=== PATIENT | female | born 2000 | race Caucasian/White ===

== ENCOUNTER 2023-04-01 07:13 | Emergency (ER) | payer OTHER, SELFPAY ==
[2023-04-01 07:19] VITALS: BP 135/75; PULSE 85; RESP 16; TEMP 36.3; O2SAT 100; BMI 43.4
--- NOTE | 2023-04-01 07:39 | ED_ITS ---
HPI - Female Genitourinary General Chief complaint: Urogenital-Female Stated complaint: Pain when urinating Time Seen by Provider: 04/01/23 07:38 Source: patient Mode of arrival: ambulatory Limitations: no limitations History of Present Illness HPI Narrative: 22-year-old female who presents emergency department for evaluation burning sensation with urination, vaginal itchiness and a white cottage cheese discharge . The patient has not been on antibiotics recently and she does not have a history of diabetes. She is sexually active and last had sex on 03/22/2023. The patient states she did use a condom. She denied urinary frequency or urgency. She denied abdominal pain, flank pain, fever, chills or fatigue. Related Data Previous Rx's Medication Instructions Recorded cephalexin 500 mg capsule 500 mg PO QID 5 days #20 caps 04/01/23 fluconazole 150 mg tablet 150 mg PO QWEEK 2 weeks #2 tabs 04/01/23 (Diflucan) miconazole nitrate 2 % vaginal 1 appful vaginal BEDTIME 7 days 04/01/23 cream (Monistat 7) #45 grams Allergies Allergy/AdvReac Type Severity Reaction Status Date / Time No Known Allergies Allergy Verified 04/01/23 07:22 Review of Systems Review of Systems: Yes all other systems are reviewed and are negative [facility] Past Medical History [facility] Narrative: Past medical history: Asthma. Social history: The patient vapes nicotine. She does drink alcohol 1 to 2 times a week. She denies drug use. Social History Social History Alcohol intake: current Alcohol intake frequency: a few times a week Smoked in Last 30 Days: Yes Use of substances other than those prescribed or required for medical reasons: No Advance Directives: No Advance Directives Information Provided: No Patient : No Physical Exam Vital Signs: Vital Signs: Last Vital Signs Temp 97.4 F 04/01/23 07:19 Pulse 85 04/01/23 07:19 Resp 16 04/01/23 07:19 BP 135/75 04/01/23 07:19 Pulse Ox 100 04/01/23 07:19 O2 Del Method Room Air 04/01/23 07:19 BMI result Body Mass Index 43.4 Const: General: cooperative and no acute distress Orientation/conscio usness: oriented to person and oriented to place Limitations: no limitations HEENT: Head: Yes normal to inspection, Yes normocephalic and Yes atraumatic Ears: external ears normal General nose exam: Normal external nose present Face and sinus: Yes normal facial exam Mouth: Normal oral and palatal mucosa present Throat: Yes posterior oropharynx normal Eyes: General: appearance normal, both eyes and all related structures Neck: Neck: Yes normal visual inspection, Yes no lymphadenopathy, Yes trachea midline and Yes supple Chest: Chest palpation & inspection: normal inspection of the chest and normal palpation of entire chest wall Resp: Effort & Inspection: normal respiratory effort and able to speak in complete sentences Auscultation: clear to auscultation bilaterally Cardio: Rate: regular rate Rhythm: regular rhythm Heart sounds: S1 normal heart sound present, S2 normal heart sound present and no murmurs GI: Inspection: Yes normal to inspection Palpation (GI): Soft to palpation, nontender and no guarding Auscultation: normal bowel sounds : General: Yes no CVA tenderness Back/Spine/Pelvis: Back: no CVA tenderness Skin: General skin exam: no rashes or lesions noted Neuro: General: oriented to person and oriented to place Cognition (Neuro): normal cognition Extrem: General: Yes normal to inspection Psych: Appearance: grossly normal Speech and movement: Normal speech and movement present Affect: normal affect Attitude: cooperative Medical Decision Making Medical Decision Making MDM Narrative: 22-year-old female who presents emergency department for evaluation of 2 days of burning sensation with urination, vaginal itchiness and a cottage cheese weight discharge which is unusual for her. She is sexually active and last had intercourse on 03/22/2021. She had no other systemic symptoms. Vital signs were normal. Patient's urinalysis was positive for leukocyte esterase, negative for nitrates. Microscopic revealed 11-20 WBCs 3-5 squamous cells trace bacteria. test was negative. Patient's symptoms are consistent with urine tract infection and yeast infection. Patient urinary tract infection will be treated with Keflex 500 mg 3 times a day for 5 days and her yeast infection will be treated with Diflucan 150 mg 1 pill now and 1 pill in 1 week and Monistat 7 -1 applicator at night for 7 days. Patient was given a work note . 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 Patient was tested for gonorrhea and chlamydia and I did tell her that she can check this on the patient portal, she should also follow up with a steamship agent to check these results. Differential Diagnosis Differential diagnosis includes was not limited to urinary tract infection, vaginal candidiasis, PID, STD, Lab Data [facility] Lab Attestation statement: I reviewed the patient's lab results. See [facility] Labs: Lab Results 04/01/23 04/01/23 Range/Units 07:33 07:33 Urine Color Yellow Urine Appearance Clear Urine pH 7.0 (5.0-9.0) Ur Specific [place] 1.020 (1.005-1.025) Urine Protein Negative (Neg-Trace) mg/dL Urine Glucose (UA) Negative (Negative) mg/dL Urine Ketones Negative (Negative) mg/dL Urine Blood Negative (Negative) Urine Nitrite Negative (Negative) Ur Leukocyte Esterase Moderate (2+) H (Negative) Urine RBC 0-2 (0-2) /HPF Urine WBC 11-20 H (0-5) /HPF Ur Squamous Epith Cells 3-5 (0-2) /HPF Urine Bacteria Trace (None Seen) Hyaline Casts 0-2 (0-2) /LPF Urine Test NEGATIVE (NEGATIVE) Discharge Plan Discharge Clinical Impression: Urinary tract infection, Candidiasis of vagina Patient Disposition: Home, Self-Care Instructions: Urinary Tract Infection in Women (ED), Yeast Infection (ED) Additional Instructions: Your urine sample did reveal white blood cells and bacteria in your urine. Your description of your discharge is consistent with a yeast infection. I am treating you for both a yeast infection and a urine infection. Take the antibiotic Keflex 500 mg pills 1 pill 3 times a day for 5 days-this will treat a urine infection. Take Diflucan 150 mg, 1 pill now repeat this in 1 week. This will treat a yeast infection. I am also giving you a prescription for Monistat 7, use 1 applicator in your vagina daily for 7 days. Rub a little bit of the medication on the outside of your vagina to help with the itchiness prior to inserting the rest of the medicine on the vagina. Your urine is also being tested for gonorrhea and chlamydia. You can check these results on the patient portal, if they are positive then you need to go to an STD Clinic or come back to the emergency department to get treated. Your sexual partner will also need to be treated if any of these tests are positive. Follow-up with our steamship agent in 7-10 days. Please return to the emergency department if your symptoms get worse or if you develop any symptoms that are concerning to you. Please see the work note Prescriptions: New cephalexin 500 mg capsule 500 mg PO QID 5 Days Qty: 20 0RF miconazole nitrate [Monistat 7] 2 % cream 1 appful vaginal BEDTIME 7 Days Qty: 45 0RF fluconazole [Diflucan] 150 mg tablet 150 mg PO QWEEK 14 Days Qty: 2 0RF Referrals: Wily Stout MD [Physician] - 10 days Stand Alone Forms: Work/School Release
[2023-04-01 07:53] LABS: Appearance Urine Clear; Color Urine Yellow; Glucose Urine UA Negative (Negative); Leukocyte Esterase Urine Moderate (2+) (Negative); Nitrite Urine Negative (Negative); UMIC TRIGGER UACC YES; Urine Blood Negative (Negative); Urine Ketones Negative (Negative); Urine Protein Negative (Neg-Trace)
[2023-04-01 08:00] LABS: Bacteria Urine Trace (None Seen); Hyaline Casts Urine 0-2 /LPF (0-2); RBC Urine 0-2 /HPF (0-2); UACC Culture Trigger YES
[2023-04-01 08:11] LABS: UPreg QC Valid YES; Urine Pregnancy NEGATIVE (NEGATIVE)
[2023-04-01 09:15] VITALS: BP 133/80; PULSE 102; TEMP 36.8; O2SAT 100
[2023-04-01 09:59] LABS: CT PCR NOT DETECTED (Not Detect.); NG PCR NOT DETECTED (Not Detect.)
== END 2023-04-01 09:31 | disposition home or self-care (01) ==
PROVIDERS: Emergency Provider Emergency Medicine Emergency Medical Services
DX: N39.0 Urinary tract infection, site not specified (principal); B37.31 Acute candidiasis of vulva and vagina; R30.9 Painful micturition, unspecified; Z20.822 Contact with and (suspected) exposure to COVID-19
CPT/HCPCS: 0353U; 81001; 81025; 87086; 99283; 99284

== ENCOUNTER 2023-04-16 13:36 | Outpatient (REF) | payer OTHER, SELFPAY ==
[2023-04-17 13:40] LABS: BV Int Neg Control Negative (Negative); BV Int Pos Control Positive (Positive)
== END 2023-04-16 13:37 | disposition home or self-care (01) ==
LOC: HO.LNP 13:36
PROVIDERS: Visit Provider Obstetrics & Gynecology
DX: Z01.419 Encounter for gynecological examination (general) (routine) without abnormal findings (principal); Z20.2 Contact with and (suspected) exposure to infections with a predominantly sexual mode of transmission; Z87.440 Personal history of urinary (tract) infections
CPT/HCPCS: 87480; 87510; 87660; 88142

== ENCOUNTER 2023-04-16 14:14 | Outpatient (REF) | payer OTHER, SELFPAY ==
[2023-04-17 03:34] LABS: CT PCR NOT DETECTED (Not Detect.); NG PCR NOT DETECTED (Not Detect.)
[2023-04-18 07:51] LABS: Syphilis Screen Nonreactive (Nonreactive)
[2023-04-18 08:05] LABS: HBsAGNum1 0.38 S/CO (0.00-0.99); HIV AB/AG Nonreactive (Nonreactive); HIV Num 1 0.08 S/CO (0.00-0.99); Hepatitis B Surface Antigen Negative (Negative); ~HepC Num1 0.09 S/CO (0.00-0.79); ~Hepatitis C Antibody Nonreactive (Nonreactive)
== END 2023-04-16 14:15 | disposition home or self-care (01) ==
LOC: HO.LAB 14:14
PROVIDERS: Visit Provider Obstetrics & Gynecology
DX: Z01.419 Encounter for gynecological examination (general) (routine) without abnormal findings (principal); Z20.2 Contact with and (suspected) exposure to infections with a predominantly sexual mode of transmission
CPT/HCPCS: 0353U; 86780; 86803; 87340; 87389

== ENCOUNTER 2023-10-04 13:35 | Emergency (ER) | payer OTHER, SELFPAY ==
--- NOTE | ~2023-10-04 | XR_ITS ---
EXAMINATION: XR CHEST CLINICAL INFORMATION: Cough. COMPARISON: None available. TECHNIQUE: 2 views of the chest were obtained. FINDINGS: No significant abnormality is noted involving the heart, lungs, mediastinum, bony thorax or soft tissues. XR/XR chest 2V IMPRESSION: Unremarkable chest exam.
[2023-10-04 14:21] VITALS: BP 141/78; PULSE 120; RESP 16; TEMP 37; O2SAT 98; BMI 44.9
--- NOTE | 2023-10-04 14:22 | ED_ITS ---
HPI - General Adult General Chief complaint: Upper Respiratory Symptoms Stated complaint: dry cough Time Seen by Provider: 10/04/23 15:25 Source: patient Mode of arrival: ambulatory Limitations: no limitations History of Present Illness HPI narrative: 23 year old female with pmhx significant for asthma presents to the ED today with complaint of dry cough x2 days. Reports sick contacts. States her boyfriend at home has pneumonia and is afraid that she has it now. Has not been taking anything for symptoms at home. Denies fever, chills, SOB, wheezing, chest pain, sore throat, N/V, abdominal pain. States she is 4 days late for her period and is concerned for . Not on OCP. Denies recent travel or long car rides. Related Data Allergies Allergy/AdvReac Type Severity Reaction Status Date / Time No Known Allergies Allergy Verified 10/04/23 14:23 Review of Systems Review of Systems: Constitutional: No fever, chills, fatigue, night sweats, weight changes ENT/Mouth: No ear pain, hearing loss, nasal congestion, sinus pain, rhinorrhea, sore throat Eyes: No eye pain, swelling, redness, vision changes, discharge Cardio: No chest pain, palpitations, GUSMAN, orthopnea, peripheral edema Pulm: No SOB, +cough, No sputum, wheezing, dyspnea, hemoptysis GI: No nausea, vomiting, hematemesis, abdominal pain, diarrhea, constipation, hematochezia, melena : No irregular bleeding, dysuria, frequency, urgency, hesitancy, hematuria, flank pain, urinary flow changes, urinary incontinence or retention MSK: No back pain, neck pain, joint pain, myalgias Skin: No lesions, rashes Neuro: No weakness, numbness, paresthesias, LOC, dizziness, headache All other systems reviewed and are negative. [facility] Past Medical History Attestation statement: The following information was validated with the patient. Source: old records reviewed and nursing notes reviewed Family History Family History Paternal Grandmother Breast cancer Social History Alcohol intake: current Alcohol intake frequency: a few times a week Substance Use Type: Marijuana Advance Directives: No Advance Directives Information Provided: No Physical Exam ED Vital Signs: Vital Signs - 24 hr 10/04/23 14:21 Temperature 98.6 F Pulse Rate 120 H Respiratory Rate 16 Blood Pressure 141/78 H Pulse Oximetry 98 Oxygen Delivery Method Room Air BMI result Body Mass Index 44.9 Afebrile Const General: cooperative, healthy appearing, comfortable, no acute distress, alert and awake Orientation/consciousness: patient oriented x3 Limitations: no limitations HENMT Other: + posterior oropharynx without erythema or edema. No tonsillar exudates. Uvula midline. Controlling secretions and speaking complete sentences. Ears: hearing grossly normal bilaterally, external ears normal, TM's normal bilaterally, EAC's normal, mastoids normal and no periauricular adenopathy Face and sinus: Yes sinuses nontender Mouth: Normal oral and palatal mucosa present and moist mucous membranes Eyes General: appearance normal, both eyes and all related structures Periorbital: periorbital findings normal Conjunctivae: conjunctivae normal Sclerae: sclerae normal Pupils: Equal, round and reactive pupils present Neck Neck: Yes normal visual inspection and Yes no lymphadenopathy Resp Effort & Inspection: normal respiratory effort and able to speak in complete sentences Auscultation: clear to auscultation bilaterally and no wheezes Cardio Rate: tachycardic Rhythm: regular rhythm Peripheral pulses: radial pulses present GI Inspection: Yes normal to inspection Palpation (GI): Soft to palpation, nontender and no guarding Skin General skin exam: no rashes or lesions noted Neuro General: patient oriented x3, gait normal and moves all extremities Cranial nerves: Yes Equal, round and reactive pupils present Extrem General: Yes normal to inspection and Yes full ROM Course Course Course Narrative: RME:?23 yo female w/ hx of asthma presents today for eval of dry cough x2 days. Boyfriend at home has pneumonia. Not on OCP. Denies recent travel or long car rides. Denies fever, chills, SOB, wheezing, chest pain, sore throat. PE: lungs cta b/l. no wheezing. rrr. posterior oropharynx without erythema/edea, uvula midline. Plan: serology, cxr Full HPI, ROS and PE to be performed by the primary ED provider. Reevaluation(s) Reevaluation #1: Patient's vital signs notable for tachycardia likely secondary to albuterol administration prior to arrival in ED. Serology positive for influenza. Negative for RSV, COVID. Informed patient of serology results. This is a virus and does not warrant antibiotic treatment. Discussed return precautions. All questions answered at this time. Patient is agreeable with disposition and stable for discharge. Medical Decision Making Medical Decision Making [facility] Narrative: 23 year old female with pmhx significant for asthma presents to the ED today with complaint of dry cough x2 days. Vital signs notable for tachycardia otherwise within normal limits. Patient is nontoxic appearing and in no acute distress. Bilaterally EACs and TMs WNL. Posterior oropharynx WNL. Lungs are clear to auscultation bilaterally. Clinical concern for viral syndrome versus pneumonia. Unlikely CHOKE REAMER, retropharyngeal abscess, strep throat, mono, pneumothorax, asthma exacerbation, PE. Plan for serology and re-evaluation. Differential Diagnosis Differential Diagnoses: The differential diagnosis associated with the presentation includes As above. Admission/Observation Not indicated Lab Data [facility] Lab Attestation statement: I reviewed the patient's lab results. As above Labs: Lab Results 10/04/23 10/04/23 Range/Units 14:27 15:43 Urine Test NEGATIVE (NEGATIVE) Influenza Type A (PCR) POSITIVE A (Negative) Influenza Type B (PCR) NEGATIVE (Negative) RSV RNA Qual (PCR) NEGATIVE (Negative) SARS-CoV-2 RNA (RT-PCR) NEGATIVE (Negative) Independent Interpretation I performed an independent interpretation of an: Plain X-Ray Interpretation: Chest x-ray without consolidation or infiltrate to suggest pneumonia, agree with radiologist's interpretation. Radiology Impression Discussion of test interpretation with radiology: I have reviewed the radiologist's reading. Radiologist Impression: XR chest 2V IMPRESSION: Unremarkable chest exam. External Record Review External record reviewed: Inpatient record Critical Care Time Critical Care Time Critical Care Time: No Discharge Plan Discharge Clinical Impression: Influenza Patient Disposition: Home, Self-Care Instructions: Influenza (ED), Flu Shot (Vaccine) for Adults (ED) Additional Instructions: Today you tested positive for influenza. Your chest x-ray did not show any signs of pneumonia. Your urine was negative for . Influenza is due to a virus and does not require antibiotics. Treatment for this is symptomatic treatment. You may take Ibuprofen or Tylenol as needed for fevers or body aches.? Practice good hand hygiene. Drink plenty of fluids. Follow-up with your primary care provider this week. Return to the emergency department with new or worsening symptoms. In case of emergency call 911 Stand Alone Forms: Work/School Release Interventions: ED Discharge Assessment Last Done: 10/04/23 17:23 Discharge Date/Time: 10/04/23 17:24
[2023-10-04 15:11] LABS: Influenza A PCR POSITIVE (Negative); Influenza B PCR NEGATIVE (Negative); Resp Syncy Virus RNA Qual PCR NEGATIVE (Negative); SARS COV2 PCR INHOUSE NEGATIVE (Negative)
[2023-10-04 15:52] LABS: UPreg QC Valid YES; Urine Pregnancy NEGATIVE (NEGATIVE)
== END 2023-10-04 17:24 | disposition home or self-care (01) ==
PROVIDERS: Physician Assistant Medical; Emergency Provider Emergency Medicine
DX: J10.1 Influenza due to other identified influenza virus with other respiratory manifestations (principal); Z20.822 Contact with and (suspected) exposure to COVID-19; Z20.828 Contact with and (suspected) exposure to other viral communicable diseases; J45.909 Unspecified asthma, uncomplicated; F12.90 Cannabis use, unspecified, uncomplicated
CPT/HCPCS: 0241U; 71046; 81025; 99282; 99283

== ENCOUNTER 2023-12-30 12:46 | Emergency (ER) | payer OTHER, SELFPAY ==
[2023-12-30 13:33] VITALS: BP 120/93; PULSE 90; RESP 19; TEMP 36.6; O2SAT 98; BMI 46.7
--- NOTE | 2023-12-30 13:35 | ED_ITS ---
HPI - General Adult General Chief complaint: General Medical Stated complaint: Sinus Infection Cough Time Seen by Provider: 12/30/23 16:02 Source: patient Mode of arrival: ambulatory Limitations: no limitations History of Present Illness HPI narrative: 23 yold female presents to the ED for sinus pain, green nasal discharge, coughing, and sore throat for a couple of day. Patient deneis any chest pain or shortness of breath. Related Data Previous Rx's Medication Instructions Recorded amoxicillin 875 mg-potassium 1 tab PO Q12H 10 days #20 tabs 12/30/23 clavulanate 125 mg tablet triamcinolone acetonide 55 mcg 2 spray intranasal DAILY 8 days 12/30/23 nasal spray aerosol (Nasacort) #16.9 mL Allergies Allergy/AdvReac Type Severity Reaction Status Date / Time No Known Allergies Allergy Verified 12/30/23 13:33 Review of Systems Review of Systems: sinus pain, green nasal discharge, nasal congestion, coughing Yes all other systems are reviewed and are negative [facility] Family History Family History Paternal Grandmother Breast cancer Social History Social History Alcohol intake: current Alcohol intake frequency: a few times a week Substance Use Type: Marijuana Advance Directives: No Advance Directives Information Provided: No Physical Exam ED Vital Signs: Vital Signs - 24 hr 12/30/23 13:33 Temperature 98 F Pulse Rate 90 Respiratory Rate 19 Blood Pressure 120/93 H Pulse Oximetry 98 Oxygen Delivery Method Room Air BMI result Body Mass Index 46.7 Const General: cooperative, healthy appearing, comfortable, no acute distress, well developed, alert, awake and Physically active Orientation/consciousness: oriented to person, oriented to place, oriented to time and patient oriented x3 HENMT Head: Yes normal to inspection, Yes No palpable skull fracture present, Yes normocephalic and Yes atraumatic Ears: hearing grossly normal bilaterally, external ears normal, TM's normal bilaterally, TM normal on the right, TM normal on the left, EAC's normal, ma stoids normal and no periauricular adenopathy Face and sinus: Yes sinus tenderness (maxillary) Throat: Yes posterior oropharynx normal, Yes tonsils normal and Yes uvula midline Eyes General: appearance normal, both eyes and all related structures Visual Deluca: normal visual deluca by confrontation Alignment and Position: alignment normal Periorbital: periorbital findings normal Eyelids: Yes eyelids normal Conjunctivae: conjunctivae normal Sclerae: sclerae normal Corneas: corneas normal Pupils: Equal, round and reactive pupils present EOM: EOMs intact bilaterally Direct Ophthalmoscopy: normal light reflex and no photophobia Neck Neck: Yes normal visual inspection, Yes full ROM, Yes no lymphadenopathy, Yes no meningeal signs, Yes trachea midline, Yes supple, No anterior neck swelling and No tender Chest Chest palpation & inspection: normal inspection of the chest and normal palpation of entire chest wall Resp Effort & Inspection: normal respiratory effort and able to speak in complete sentences Auscultation: clear to auscultation bilaterally Cardio Jugular venous distension: no JVD Heart sounds: S1 normal heart sound present and S2 normal heart sound present GI Inspection: Yes normal to inspection and No abdominal wall ecchymosis Palpation (GI): Soft to palpation, not firm, nontender, no guarding and not rigid General: Yes no CVA tenderness Back/Spine/Pelvis Back: no CVA tenderness and No back tenderness Skin General skin exam: no rashes or lesions noted, elasticity normal and turgor normal Neuro General: oriented to person, oriented to place, oriented to time, patient oriented x3, gait normal, tone normal, moves all extremities, Normal light touch and pain sensation, no meningeal signs, no focal motor deficits and CN's II-XI intact bilaterally Cranial nerves: Yes Equal, round and reactive pupils present Extrem General: Yes normal to inspection, Yes full ROM and Yes capillary refill normal Psych Appearance: grossly normal, well kempt and not disheveled Course Course Course Narrative: RME: 23 yold female presents to the ED for nasal congestion, sore throat, and having green nasal discharge, and cougning green phelghm. Patient denies any chest pain or shortness of breath. SARS and strep ordered Medical Decision Making Medical Decision Making MDM Narrative: 23 yold female presents to the ED for sinus pain, sore throat with nasal green discharge, and coughing. SARS and strep negative. Treated as sinusitis. Explained worrisome signs and informed to return if she has them. Differential Diagnosis Differential Diagnoses: The differential diagnosis associated with the presentation includes (Covid, strep, influenza, sinusitis) Admission/Observation Consideration of admission/observation: Escalation of care including admission/observation considered Lab Data MDM Lab Attestation statement: I reviewed the patient's lab results. Labs: Lab Results 12/30/23 12/30/23 Range/Units 14:45 14:46 Influenza Type A (PCR) NEGATIVE (Negative) Influenza Type B (PCR) NEGATIVE (Negative) RSV RNA Qual (PCR) NEGATIVE (Negative) SARS-CoV-2 RNA (RT-PCR) NEGATIVE (Negative) S. pyogenes GrpA NATHALIE Negative (Negative) External Record Review External record reviewed: Other (Prior visits) Prescription Management I considered prescription management with: Pain Medication and Antibiotic Discharge Plan Discharge Clinical Impression: Sinusitis Patient Disposition: Home, Self-Care Instructions: Sinusitis (ED) Additional Instructions: Recommend follow-up with your primary care provider. Return to the ED immediately for any chest pain, shortness of breath, severe facial pain, worsening discharge from the nose. Bleeding from the nose, fever, chills, or any other concerning symptoms. Prescriptions: New amoxicillin-pot clavulanate 875-125 mg tablet 1 tab PO Q12H 10 Days Qty: 20 0RF triamcinolone acetonide [Nasacort] 55 mcg aerosol,spray 2 spray intranasal DAILY 8 Days Qty: 16.9 0RF Rx Instructions: administer into each nostril Stand Alone Forms: Work/School Release Interventions: ED Discharge Assessment Last Done: 12/30/23 17:08 Discharge Date/Time: 12/30/23 17:09 Print Language: Ken[place]
[2023-12-30 15:20] LABS: IDNOW Serial# 08D9AD1C; Strep A Nucleic Acid Negative (Negative)
[2023-12-30 15:54] LABS: Influenza A PCR NEGATIVE (Negative); Influenza B PCR NEGATIVE (Negative); Resp Syncy Virus RNA Qual PCR NEGATIVE (Negative); SARS COV2 PCR INHOUSE NEGATIVE (Negative)
== END 2023-12-30 17:09 | disposition home or self-care (01) ==
PROVIDERS: Physician Assistant; Emergency Provider Emergency Medicine Emergency Medical Services
DX: J32.9 Chronic sinusitis, unspecified (principal); R05.9 Cough, unspecified; J02.9 Acute pharyngitis, unspecified; Z20.822 Contact with and (suspected) exposure to COVID-19; Z11.52 Encounter for screening for COVID-19
CPT/HCPCS: 0241U; 87651; 99282; 99283

== ENCOUNTER 2024-02-04 20:13 | Emergency (ER) | payer OTHER, SELFPAY ==
[2024-02-04 21:19] VITALS: BP 114/79; PULSE 95; RESP 16; TEMP 36.8; O2SAT 99; BMI 44.0
[2024-02-04 22:05] LABS: Appearance Urine Clear; Color Urine Yellow; Glucose Urine UA Negative (Negative); Leukocyte Esterase Urine Negative (Negative); Nitrite Urine Negative (Negative); Urine Blood Negative (Negative); Urine Ketones Negative (Negative); Urine Protein Negative (Neg-Trace)
[2024-02-04 22:10] LABS: UPreg QC Valid YES; Urine Pregnancy NEGATIVE (NEGATIVE)
[2024-02-04 23:49] VITALS: BP 115/63; PULSE 80; RESP 16; TEMP 37.1; O2SAT 100
== END 2024-02-05 06:02 | disposition left against medical advice (07) ==
PROVIDERS: Emergency Provider Emergency Medicine
DX: Z20.2 Contact with and (suspected) exposure to infections with a predominantly sexual mode of transmission (principal)
CPT/HCPCS: 81003; 81025; 99282